=== PATIENT | male | born 1965 | race Caucasian/White ===

== ENCOUNTER 2022-02-21 12:19 | Emergency (ER) | payer SELFPAY ==
[2022-02-21] MEDS ORDERED: Lidocaine 1% 5 ML VIAL INJECT ONE (13:15)
[2022-02-21] MEDS ORDERED: Bupivacaine 0.25% 10 ML SDV INJECT ONE (13:15)
[2022-02-21] MEDS ORDERED: Diphtheria,Pertussis(Acell),Tetanus Vaccine 0.5 ML Syringe IM ONE (13:18)
[2022-02-21] MEDS ORDERED: Bacitracin Oint 1 GM U/D Packet TOP ONE (14:11)
== END 2022-02-21 15:08 | disposition home or self-care (01) ==
LOC: MW.ED 12:19
DX: S71.112A Laceration without foreign body, left thigh, initial encounter (principal); Z23 Encounter for immunization; F17.210 Nicotine dependence, cigarettes, uncomplicated; W29.8XXA Contact with other powered hand tools and household machinery, initial encounter; Y93.H3 Activity, building and construction; Y92.79 Other farm location as the place of occurrence of the external cause; Y99.0 Civilian activity done for income or pay
CPT/HCPCS: 12002; 90471; 99282; J3490; 99283